=== PATIENT | female | born 1945 | race Caucasian/White ===

== ENCOUNTER → 2017-07-19 | Outpatient (CLI) | payer MEDICARE, BC ==
--- NOTE | 2017-07-20 10:11 | MM ---
Reason for exam: screening (asymptomatic). Last mammogram was performed 1 year and 3 months ago. History: Patient is postmenopausal and has history of other cancer at age 33. Family history of breast cancer in paternal cousin at age 40, breast cancer in maternal grandmother, breast cancer in 2 paternal aunts, and breast cancer in maternal cousin. Benign stereotactic core biopsy of the left breast, December 27, 2001. Core biopsy of the left breast. Excisional biopsy of the left breast. Physical Findings: A clinical breast exam by your physician is recommended on an annual basis and results should be correlated with mammographic findings. MG 3D Screening Mammo W/Cad Bilateral CC and MLO view(s) were taken. Prior study comparison: April 08, 2016, bilateral MG 3d screening mammo w/cad. February 20, 2015, bilateral MG screening mammo w CAD. November 21, 2013, bilateral digital screening mammo w/CAD. There are scattered fibroglandular densities. Previous mammotome biopsy within the left breast. No significant changes when compared with prior studies. ASSESSMENT: Negative, BI-RAD 1 RECOMMENDATION: Routine screening mammogram of both breasts in 1 year.
== END | disposition home or self-care (01) ==
LOC: RADMAMWWP 15:27
PROVIDERS: ATTEND Obstetrics & Gynecology
DX: Z12.31 Encounter for screening mammogram for malignant neoplasm of breast (principal)
CPT/HCPCS: 77063; G0202

== ENCOUNTER → 2019-09-26 | Outpatient (CLI) | payer MEDICARE ==
--- NOTE | 2019-09-30 09:31 | MM ---
Reason for exam: screening (asymptomatic). Last mammogram was performed 1 year ago. History: Patient is postmenopausal and has history of other cancer at age 33. Family history of breast cancer in paternal cousin at age 40, breast cancer in maternal grandmother, breast cancer in 2 paternal aunts, and breast cancer in maternal cousin. Benign stereotactic core biopsy of the left breast, December 27, 2001. Core biopsy of the left breast. Excisional biopsy of the left breast. Physical Findings: A clinical breast exam by your physician is recommended on an annual basis and results should be correlated with mammographic findings. MG 3D Screening Mammo W/Cad Bilateral CC and MLO view(s) were taken. Prior study comparison: September 13, 2018, bilateral MG 3d screening mammo w/cad. July 19, 2017, bilateral MG 3d screening mammo w/cad. The breast tissue is heterogeneously dense. This may lower the sensitivity of mammography. Benign appearing bilateral calcifications. No suspicious abnormality. Left biopsy marker noted. No significant changes when compared with prior studies. ASSESSMENT: Benign, BI-RAD 2 RECOMMENDATION: Routine screening mammogram of both breasts in 1 year.
== END | disposition home or self-care (01) ==
LOC: RADMAMWWP 07:26
PROVIDERS: ATTEND Internal Medicine
DX: Z12.31 Encounter for screening mammogram for malignant neoplasm of breast (principal); Z80.3 Family history of malignant neoplasm of breast
CPT/HCPCS: 77063; 77067

== ENCOUNTER → 2020-05-04 | Outpatient (CLI) | payer MEDICARE ==
--- NOTE | 2020-05-04 17:04 | MR ---
EXAMINATION TYPE: MR iac wo/w con DATE OF EXAM: 05/04/2020 COMPARISON: None HISTORY: Vertigo, Some left sided hearing loss, hears a steady low noise in left ear TECHNIQUE: Multiplanar, multisequence images of the brain and internal auditory canals is performed without and with IV contrast, utilizing 5.5 mL intravenous Gadavist . FINDINGS: Diffusion weighted images demonstrate no evidence of a recent infarct or other diffusion ab normality. There is no extra-axial fluid collection or significant white matter signal abnormality. The ventricular system and cisternal spaces are normal in size and appearance. Very few foci of T2 FLAIR hyperintense periventricular signal, likely sequela of chronic microvascular ischemic changes. There is volume loss commensurate with patient age. Midline structures demonstrate normal morphology. The craniocervical junction appears within normal limits. The cerebellopontine angles are normal. No mass lesion is identified. The internal auditory canals, 7th and 8th cranial nerves, and the internal ear structures are unremarkable. Post contrast i mages demonstrate no abnormal enhancement. The visualized sinuses are clear and the globes are grossl y symmetric. IMPRESSION: No evidence of mass lesion or focal abnormality to explain patient's vertigo or left-side d hearing loss.
== END | disposition home or self-care (01) ==
LOC: RADMRIMAIN 08:53
PROVIDERS: ATTEND Otolaryngology
DX: H93.12 Tinnitus, left ear (principal); H91.93 Unspecified hearing loss, bilateral; Z88.5 Allergy status to narcotic agent
CPT/HCPCS: 70553; A9585

== ENCOUNTER → 2020-12-03 | Outpatient (CLI) | payer MEDICARE ==
--- NOTE | 2020-12-03 17:43 | BD ---
EXAMINATION TYPE: Axial Bone Density DATE OF EXAM: 12/03/2020 COMPARISON: 09.13.2018 CLINICAL HISTORY: 75 YR OLD FEMALE......ICD-10 CODE: M81.0 KNOWN OSTEOPOROSIS Height: 63.2 Weight: 113 FRAX RISK QUESTIONS: NOTHING TO NOTE HERE RISK FACTORS HISTORY OF: Family History of Osteoporosis: UNKNOWN Postmenopausal woman: PROBABLY IN EARLY 50s, HYST AT AGE 31 Lost more than 2 inches in height since high school: YES Hyperparathyroidism: NO Adrenal Insufficiency: NO MEDICATIONS: Osteoporosis Medications: YES, BONIVA ON FOR 3 OFF FOR 10 YRS NOW Additional Medications: VIT D , MULTIVITAMIN Additional History: OSTEOPOROSIS EXAM MEASUREMENTS: Bone mineral densitometry was performed using the zlien System. Bone mineral density as measured about the Lumbar spine is: ----- L1-L4(G/cm2): 0.968 T Score Values are as follows: ----- L1: -2.2 ----- L2: -1.8 ----- L3: -1.1 ----- L4: -2.1 ----- L1-L4: -1.8 Bone mineral density has: Decreased -2.9% since study of: 09.13.2018 Bone mineral density about the R hip (g/cm2): 0.770 Bone mineral density about the L hip (g/cm2): 0.826 T Score values are as follows: -----R Neck: -2.2 -----L Neck: -1.4 -----R Total: -1.9 -----L Total: -1.4 Bone mineral density has: Decreased -4.2% since study of: 09.13.2018 FRAX%s: THERE IS A 12.2% CHANCE FOR A MAJOR OSTEOPOROTIC FX AND A 3.4% FOR HIP......PROBABILITY FO R FX IN 10 YRS TIME IMPRESSION: Osteopenia (T Score between -2.5 and -1). There is slightly increased risk of fracture and the patient may be considered for treatment. Re-Screen 2-5 years. NOTE: T-SCORE=SD OF THE YOUNG ADULT MEAN.
--- NOTE | 2020-12-04 14:06 | MM ---
Reason for exam: screening (asymptomatic). Last mammogram was performed 1 year and 2 months ago. History: Patient is postmenopausal and has history of other cancer at age 33. Family history of breast cancer in paternal cousin at age 40, breast cancer in maternal grandmother, breast cancer in 2 paternal aunts, and breast cancer in maternal cousin. Benign stereotactic core biopsy of the left breast, December 27, 2001. Core biopsy of the left breast. Excisional biopsy of the left breast. Physical Findings: A clinical breast exam by your physician is recommended on an annual basis and results should be correlated with mammographic findings. MG 3D Screening Mammo W/Cad Bilateral CC and MLO view(s) were taken. Prior study comparison: September 26, 2019, bilateral MG 3d screening mammo w/cad. September 13, 2018, bilateral MG 3d screening mammo w/cad. The breast tissue is heterogeneously dense. This may lower the sensitivity of mammography. Stable benign calcifications. There is no discrete abnormality. No significant changes when compared with prior studies. ASSESSMENT: Benign, BI-RAD 2 RECOMMENDATION: Routine screening mammogram of both breasts in 1 year.
== END | disposition home or self-care (01) ==
LOC: RADBDWWP 08:27
PROVIDERS: ATTEND Internal Medicine
DX: Z12.31 Encounter for screening mammogram for malignant neoplasm of breast (principal); M85.80 Other specified disorders of bone density and structure, unspecified site
CPT/HCPCS: 77063; 77067; 77080

== ENCOUNTER → 2022-01-21 | Outpatient (CLI) | payer MEDICARE ==
--- NOTE | 2022-01-24 11:42 | MM ---
Reason for exam: screening (asymptomatic). Last mammogram was performed 1 year and 2 months ago. History: Patient is postmenopausal and has history of other cancer at age 33. Family history of breast cancer in paternal cousin at age 40, breast cancer in maternal grandmother, breast cancer in 2 paternal aunts, and breast cancer in maternal cousin. Benign stereotactic core biopsy of the left breast, December 27, 2001. Core biopsy of the left breast. Excisional biopsy of the left breast. Physical Findings: A clinical breast exam by your physician is recommended on an annual basis and results should be correlated with mammographic findings. MG 3D Screening Mammo W/Cad Bilateral CC and MLO view(s) were taken. Prior study comparison: December 03, 2020, bilateral MG 3d screening mammo w/cad. September 26, 2019, bilateral MG 3d screening mammo w/cad. The breast tissue is heterogeneously dense. This may lower the sensitivity of mammography. Stable benign calcifications. There is no discrete abnormality. No significant changes when compared with prior studies. ASSESSMENT: Benign, BI-RAD 2 RECOMMENDATION: Routine screening mammogram of both breasts in 1 year.
== END | disposition home or self-care (01) ==
LOC: RADMAMWWP 15:41
PROVIDERS: ATTEND Internal Medicine
DX: Z12.31 Encounter for screening mammogram for malignant neoplasm of breast (principal); Z78.0 Asymptomatic menopausal state; Z80.3 Family history of malignant neoplasm of breast
CPT/HCPCS: 77063; 77067

== ENCOUNTER → 2022-05-03 | Outpatient (CLI) | payer MEDICARE ==
[2022-05-03 10:00] VITALS: BP 114/73; PULSE 74; RESP 17; TEMP 97.9
--- NOTE | 2022-05-03 11:02 | P.HPOB ---
History of Present Illness H&P Date: 05/03/22 Chief Complaint: The patient is here for her routine gynecologic exam. This is a 76-year-old with an LMP of 1978. The patient is here to establish with this office. It has been about 3-1/2 years since her last pelvic exam. She is status post vaginal hysterectomy for cervical dysplasia in 1978. She is without gynecologic complaints. Review of Systems The patient's weight has been stable over the last year. She denies respiratory, cardiac, or G.I. problems. Past Medical History Past Medical History: No Reported History, Hyperlipidemia Additional Past Medical History / Comment(s): "Leaky"cardiac valve (Asymptomatic). Osteopenia(s/p 3yr use of Boniva). 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 History of cervical dysplasia in 1978. History of Any Multi-Drug Resistant Organisms: None Reported Past Surgical History: Appendectomy, Cholecystectomy, Hysterectomy, Tonsillectomy Additional Past Surgical History / Comment(s): Vaginal hysterectomy 1978 for cervical dysplasia. Past Anesthesia/Blood Transfusion Reactions: No Reported Reaction Past Psychological History: No Psychological Hx Reported (She denies current depression.) Smoking Status: Former smoker Past Alcohol Use History: Occasional (0-3 per week) Additional Past Alcohol Use History / Comment(s): Quit smoking in 1978 Past Drug Use History: None Reported Additional History: She has been since 1977 and is infrequently sexually active. She is retired and previously worked at [employer]. - Past Family History Father Family Medical History: Coronary Artery Disease (CAD), Hypertension Additional Family Medical History / Comment(s): Paternal grandmother had diabetes. Mother Additional Family Medical History / Comment(s): Cardiac valve disorder. Brother(s) Family Medical History: Hyperlipidemia, Hypertension Additional Family Medical History / Comment(s): Overweight. Medications and Allergies Home Medications Medication Instructions Recorded Confirmed Type Ascorbic Acid [Vitamin C] 500 mg PO DAILY 05/03/22 05/03/22 History Cholecalciferol [Vitamin D3 (25 25 mcg PO DAILY 05/03/22 05/03/22 History Mcg = 1000 Iu)] Multivit-Min/Iron/Folic/Lutein 1 tab PO DAILY 05/03/22 05/03/22 History [Centrum Silver Women Tablet] Allergies Allergy/AdvReac Type Severity Reaction Status Date / Time No Known Allergies Allergy Unverified 05/03/22 10:00 Exam Vital Signs Temp Pulse Resp BP Pulse Ox 05/03/22 09:55 97.9 F 74 17 114/73 96 Intake and Output 05/02/22 05/03/22 05/03/22 22:59 06:59 14:59 Other: Weight 53.977 kg Height 5 feet 4 inches, weight 119 pounds, BMI 20.4. This is a well-developed well-nourished white female who is alert and oriented times 3 in no acute distress. HEENT: Within normal limits. NECK: Supple without mass or thyromegaly. CHEST AND LUNGS: Clear to auscultation. HEART: Regular rate and rhythm. BREASTS: Are without mass or discharge. AXILLARY EXAM: Negative for adenopathy. BACK: Negative for CVA tenderness. ABDOMEN: Soft, nontender, without palpable masses. PELVIC EXAM: External genitalia appears normal with mild to moderate atrophy. Vagina appears normal with mild to moderate atrophy. There is no evidence of prolapse. Bimanual examination is negative for mass or tenderness. RECTAL EXAM: Rectovaginal exam is negative for mass or tenderness and is negative for occult blood. EXTREMITIES: Nontender. IMPRESSION: 1. 76-year-old menopausal female status post vaginal hysterectomy for cervical dysplasia in 1978, with normal gynecologic exam. 2. History of osteopenia. PLAN: 1. Pap smears have been discontinued. 2. Self breast awareness was discussed with the patient. We have also discussed symptoms associated with inflammatory breast cancer. 3. She had a benign screening mammogram on 01/21/2022. She will repeat this in 1 year. 4. Osteoporosis prevention was discussed. I have stressed the importance of adequate calcium, vitamin D and regular exercise. Recommended amounts of calcium and vitamin D were also discussed. Bone density on 12/03/2020 showed osteopenia. She is status post 3 years use of Boniva and years ago. I have recommended that she repeat the bone density test in 1 year. She will do this a t her next annual exam here. 5. Colorectal cancer screening was discussed. She believes she has been doing Cologuard testing through her PCP. She will discuss colorectal cancer screening with her PCP. 6. She has completed her Covid vaccination series and did receive a booster.
== END ==
LOC: WWCWWP 09:45
PROVIDERS: ATTEND Obstetrics & Gynecology
DX: Z01.419 Encounter for gynecological examination (general) (routine) without abnormal findings (principal); E78.5 Hyperlipidemia, unspecified; F32.A Depression, unspecified; Z87.891 Personal history of nicotine dependence; Z78.0 Asymptomatic menopausal state; Z90.710 Acquired absence of both cervix and uterus; Z87.39 Personal history of other diseases of the musculoskeletal system and connective tissue; Z87.410 Personal history of cervical dysplasia

== ENCOUNTER → 2023-01-25 | Outpatient (CLI) | payer MEDICARE ==
--- NOTE | 2023-01-25 10:16 | BD ---
EXAMINATION TYPE: Axial Bone Density DATE OF EXAM: 01/25/2023 CLINICAL HISTORY: 77 years old Female. ICD-10 CODE: M81.0 OSTEOPOROSIS Height: 63 Weight: 119 FRAX RISK QUESTIONS: Family History (Parent hip fracture): no History of Fracture in Adulthood: no Secondary Osteoporosis: no Rheumatoid Arthritis: no RISK FACTORS HISTORY OF: Family History of Osteoporosis: no Active: yes Diet low in dairy products/other sources of calcium: no Postmenopausal woman: yes Lost more than 2 inches in height since high school: no Frequent falls: no Poor Health: no MEDICATIONS: Additional Medications: no Additional History: yes cervical cancer EXAM MEASUREMENTS: Bone mineral densitometry was performed using the Copytele System. Bone mineral density as measured about the Lumbar spine is: ----- L1-L4(G/cm2): 0.970 T Score Values are as follows: ----- L1: -2.2 ----- L2: -1.8 ----- L3: -1.2 ----- L4: -2.0 ----- L1-L4: -1.8 Z Score Values are as follows: ----- L1: -0.1 ----- L2: 0.3 ----- L3: 0.9 ----- L4: 0.1 ----- L1-L4: 0.4 Bone mineral density has: Increased 0.2% since study of: 12/03/2020 Bone mineral density about the R hip (g/cm2): 0.752 Bone mineral density about the L hip (g/cm2): 0.799 T Score values are as follows: -----R Neck: -2.7 -----L Neck: -2.0 -----R Total: -2.0 -----L Total: -1.7 Z Score values are as follows: -----R Neck: -0.5 -----L Neck: 0.2 -----R Total: 0.0 -----L Total: 0.4 Bone mineral density has: Decreased -2.9% since study of: 12/03/2020 FRAX%s: The graph provided illustrates a 17.0% chance for a major osteoporotic fx and a 6.2% chance f or the hips probability for fx in 10 years time. IMPRESSION: Osteoporosis (T Score less than -2.5). There is increased fracture risk and therapy is usually indicated based on age. Re-Screen 1-2 years. NOTE: T-SCORE=SD OF THE YOUNG ADULT MEAN.
--- NOTE | 2023-01-26 16:50 | MM ---
Reason for Exam: Screening (asymptomatic). Last screening mammogram was performed 12 month(s) ago. Patient History: Menarche at age 17. First Full-Term at age 23. Hysterectomy at age 32. Postmenopausal. Core Biopsy on the Left side. Excisional Biopsy on the Left side. 12/27/2001, Benign Stereotactic Core Biopsy on the left side. Maternal grandmother had breast cancer. Paternal cousin had breast cancer, age 40. Maternal cousin had breast cancer. Paternal aunt had breast cancer. Paternal aunt had breast cancer. Risk Values: Rita 5 year model risk: 2.2%. NCI Lifetime model risk: 4.7%. Prior Study Comparison: 09/26/2019 Bilateral Screening Mammogram, [facility]. 12/03/2020 Bilateral Screening Mammogram, [facility]. 01/21/2022 Bilateral Screening Mammogram, [facility]. Tissue Density: The breast tissue is heterogeneously dense. This may lower the sensitivity of mammography. Findings: Analyzed By CAD. There is symmetrical and stable. Benign spherical calcifications are bilaterally. Benign vascular calcifications are bilateral. There is a core marker in the left breast. No suspicious groups of microcalcifications, spiculated or lobular masses, architectural distortion or other secondary signs of malignancy are mammographically apparent. Overall Assessment: Benign, BI-RAD 2 Management: Screening Mammogram of both breasts in 1 year. A negative mammogram report should not preclude additional follow up of suspicious palpable abnormalities. Patient should continue monthly self breast exam. A clinical breast exam by your physician is recommended on an annual basis and results should be correlated with mammographic findings. Electronically signed and approved by: Fabien Pratt D.O. Radiologis
== END | disposition home or self-care (01) ==
LOC: RADMAMWWP 07:35
PROVIDERS: ATTEND Internal Medicine
DX: Z12.31 Encounter for screening mammogram for malignant neoplasm of breast (principal); M81.0 Age-related osteoporosis without current pathological fracture; Z78.0 Asymptomatic menopausal state; Z80.3 Family history of malignant neoplasm of breast; Z98.890 Other specified postprocedural states
CPT/HCPCS: 77063; 77067; 77080

== ENCOUNTER → 2023-05-16 | Outpatient (CLI) | payer MEDICARE ==
[2023-05-16 11:30] VITALS: BP 115/72; PULSE 90; RESP 16; TEMP 98.4
--- NOTE | 2023-05-16 12:37 | P.HPOB ---
History of Present Illness H&P Date: 05/16/23 Chief Complaint: The patient is here for her routine gynecologic exam. This is a 77-year-old with an LMP of 1978. She is status post vaginal hysterectomy for cervical dysplasia in 1978. She thinks she has a urinary tract infection. This would be her first UTI. She states she returned from a trip to [place] 4 days ago. Just prior to traveling home she developed urinary symptoms including urinary urgency, urinary frequency and dysuria with burning. She has been voiding small amounts recently. She has recently also gotten over "food poisoning" with diarrhea. She is infrequently sexually active. She is otherwise without complaints. She did have a mammogram and bone density test done through her PCP on 01/25/2023. The mammogram was benign. The bone density test did show osteoporosis. Her PCP offered her prescription treatment for the osteoporosis which she has declined. Review of Systems The patient's weight has been stable over the last year. She denies respiratory, cardiac, or G.I. problems. : See HPI. Past Medical History Past Medical History: No Reported History, Hyperlipidemia Additional Past Medical History / Comment(s): "Leaky"cardiac valve (Asymptomatic). Osteoporosis (s/p 3yr use of Boniva). 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 History of cervical dysplasia in 1978. History of Any Multi-Drug Resistant Organisms: None Reported Past Surgical History: Appendectomy, Cholecystectomy, Hysterectomy, Tonsillectomy Additional Past Surgical History / Comment(s): Vaginal hysterectomy 1978 for cervical dysplasia. Past Anesthesia/Blood Transfusion Reactions: No Reported Reaction Past Psychological History: No Psychological Hx Reported Smoking Status: Former smoker Past Alcohol Use History: Occasional (0-3 per week.) Additional Past Alcohol Use History / Comment(s): Quit smoking in 1978 Past Drug Use History: None Reported Additional History: She has been since 1977 and is infrequently sexually active. She is retired and previously worked for [employer]. - Past Family History Father Family Medical History: Coronary Artery Disease (CAD), Hypertension Additional Family Medical History / Comment(s): Paternal grandmother had diabetes. Mother Additional Family Medical History / Comment(s): Cardiac valve disorder. Brother(s) Family Medical History: Hyperlipidemia, Hypertension Additional Family Medical History / Comment(s): Overweight. Medications and Allergies Home Medications Medication Instructions Recorded Confirmed Type Ascorbic Acid [Vitamin C] 500 mg PO DAILY 05/03/22 05/16/23 History Cholecalciferol [Vitamin D3 (25 25 mcg PO DAILY 05/03/22 05/16/23 History Mcg = 1000 Iu)] Multivit-Min/Iron/Folic/Lutein 1 tab PO DAILY 05/03/22 05/16/23 History [Centrum Silver Women Tablet] Allergies Allergy/AdvReac Type Severity Reaction Status Date / Time No Known Allergies Allergy Unverified 05/16/23 11:24 Exam Vital Signs Temp Pulse Resp BP Pulse Ox 05/16/23 11:27 98.4 F 90 16 115/72 97 Intake and Output 05/15/23 05/16/23 05/16/23 22:59 06:59 14:59 Other: Weight 54.431 kg Height 5 feet 4 inches, weight 120 pounds, BMI 20.6. This is a well-developed well-nourished white female who is alert and oriented times 3 in no acute distress. HEENT: Within normal limits. NECK: Supple without mass or thyromegaly. CHEST AND LUNGS: Clear to auscultation. HEART: Regular rate and rhythm. BREASTS: Are without mass or discharge. AXILLARY EXAM: Negative for adenopathy. BACK: Negative for CVA tenderness. ABDOMEN: Soft, nontender, without palpable masses. PELVIC EXAM: External genitalia appears normal with mild to moderate atrophy. Vagina appears normal with mild to moderate atrophy. There is no unusual discharge. There is no evidence of prolapse. Bimanual examination is negative for mass. There is mild tenderness in the area of her bladder. She states it feels like pressure when I push in this area. RECTAL EXAM: Rectovaginal exam is negative for mass or tenderness and is nega tive for occult blood. EXTREMITIES: Nontender. IMPRESSION: 1. 77-year-old menopausal female status post vaginal hysterectomy for cervical dysplasia with normal gynecologic exam. 2. Suspected cystitis UTI. 3. Osteoporosis status post 3 years use of Boniva in the past. PLAN: 1. Pap smears have been discontinued. 2. Self breast awareness was discussed with the patient. We have also discussed symptoms associated with inflammatory breast cancer. 3. Screening mammogram was done on 01/25/2023 and was benign. She will repeat this after 1 year. 4. She will be treated empirically for her suspected UTI. Macrobid twice a day 7 days. The electronic prescription will be sent to [facility] in [place]. 5. Osteoporosis management was discussed. I have stressed the importance of adequate calcium, vitamin D and regular exercise. Recommended amounts of calcium and vitamin D were also discussed. We have discussed restarting a bisphosphonate such as Fosamax or Boniva since she used it for 3 years. We discussed the option of starting it and using it for 2 additional years to complete a total of 5 years. She is declining prescription medication for the osteoporosis at this time. She will call if she changes her mind about taking prescribed medication which may decrease the risk for bone fracture. 6. We have discussed the option of using estrogen vaginal cream for vaginal d ryness with intercourse as well as possibly decreasing the chances of recurrent UTIs. She is interested in having a trial of Premarin vaginal cream. She will insert 1 g into the vagina and to times weekly. One sample tube was given to the patient with instructions electronic prescription will be sent to [facility] pharmacy in [place]. 7. Urine has been obtained for urinalysis with culture and sensitivities. 8. She was advised to return in one year for her annual well woman exam and as needed.
[2023-05-17 05:15] LABS: Appearance,Urine Turbid (Clear); Bacteria,Urine 3+ (None Seen); Bilirubin,Urine Negative (Negative); Blood,Urine Large (Negative); Calcium Oxalate Crystals,Urine Present (None Seen); Color,Urine Dark Yellow (Yellow); Ketones,Urine Trace (Negative); Nitrite,Urine Positive (Negative); PH, Urine 5.5; Specific Gravity,Urine 1.021 (1.001-1.030)
--- NOTE | 2023-05-17 14:06 | P.PN ---
Progress Note - Text Progress Note Date: 05/17/23 OUTPATIENT FOLLOW-UP NOTE TEST(S)/RESULTS: Urinalysis done on 05/16/2023 was positive for white blood cells nitrite and blood; this is consistent with UTI. METHOD OF NOTIFICATION: A message with this result was left on the patient's voicemail on 05/17/2023. PATIENT COMMENTS: DIAGNOSIS: Cystitis UTI. DISCUSSION: She was empirically treated with Macrobid when she was seen on 05/16/2023. She was instructed to call if she has any questions or problems. We will await the urine culture with sensitivities. PLAN: As above.
== END ==
LOC: WWCWWP 11:15
PROVIDERS: ATTEND Obstetrics & Gynecology
DX: Z01.411 Encounter for gynecological examination (general) (routine) with abnormal findings (principal); E78.5 Hyperlipidemia, unspecified; M81.0 Age-related osteoporosis without current pathological fracture; N39.0 Urinary tract infection, site not specified; Z87.891 Personal history of nicotine dependence; R39.15 Urgency of urination; R30.0 Dysuria
CPT/HCPCS: 81001; 87086

== ENCOUNTER → 2023-11-20 | Outpatient (CLI) | payer MEDICARE ==
--- NOTE | 2023-11-20 14:52 | US ---
EXAMINATION TYPE: US thyroid st tissue head/neck DATE OF EXAM: 11/20/2023 COMPARISON: NONE CLINICAL INDICATION: Female, 78 years old with history of E04.1 THYROID NODULE; Thyroid nodule. GLAND SIZE: Right Lobe: 4.4 x 1.4 x 1.1 cm Overall Parenchyma: homogeneous Left Lobe: 5.0 x 1.3 x 1.5 cm Overall Parenchyma: homogeneous Isthmus Thickness: 0.31 cm NODULES RIGHT: # of nodules measured on right: 1. Multiple less than 5 mm nodules seen, not fully measured . 1. 0.5 X 0.5 x 0.3 cm, mid mid, Prior size: No prior TIRADS Score: 0. TIRADS Category 1: Composition: Cystic or almost completely cystic (0 points). Recommendation: No FNA LEFT: # of nodules measured on left: 2. *Several smaller anechoic nodules seen additionally in th e inferior left lobe, not fully measured. 1. 0.6 X 0.6 x 0.5 cm, mid mid, Prior size: No prior TIRADS Score: 0 TIRADS Category 1: Composition: Cystic or almost completely cystic (0 points). Recommendation: No FNA 2. 0.7 X 0.6 x 0.5 cm, lower lateral, Prior size: No prior TIRADS Score: 0 TIRADS Category 1: Composition: Cystic or almost completely cystic (0 points). Recommendation: No FNA ISTHMUS: # of nodules measured in the isthmus: 1 1. 0.7 X 0.6 x 0.4 cm Prior size: No prior TIRADS Score: 4 TIRADS Category 4: Composition: Solid or almost completely solid (2 points). Echogenicity: Hypoechoic (2 points). Shape: Wider than tall (0 points). Margin: Smooth (0 points). Echogenic foci: None or large comet-tail artifacts (0 points) Recommendation: If >1.5cm: FNA; If >1cm: Follow up at 1,2, 3,5 years Bilateral neck scanned, no evidence of lymphadenopathy. IMPRESSION: Bilateral thyroid nodules that meet criteria for follow-up.
== END | disposition home or self-care (01) ==
LOC: RADUSWWP 13:15
PROVIDERS: ATTEND Internal Medicine
DX: E04.2 Nontoxic multinodular goiter (principal)
CPT/HCPCS: 76536

== ENCOUNTER → 2024-02-08 | Outpatient (CLI) | payer MEDICARE ==
--- NOTE | 2024-02-19 11:53 | NM ---
EXAMINATION TYPE: NM DatScan Brain SPECT DATE OF EXAM: 02/16/2024 COMPARISON: NONE CLINICAL INDICATION: Female, 78 years old with history of R25.1 tremor; TECHNIQUE: 10 drops of Lugol's solution was administered 1 hour prior to injection as a thyroid bloc emily agent. After the administration of 4.7 mCi I-123 Ioflupane DaTscan. Images obtained [address] injection. SPECT images of the brain were acquired with axial and coronal reconstructions. FINDINGS: Diffusely increased background activity. In addition, there is significantly blunted striatal uptake. IMPRESSION: This abnormal appearance is supportive of a clinical diagnosis of either idiopathic Parkinson's disea se or Parkinsonian syndrome.
== END | disposition home or self-care (01) ==
LOC: RADNMMAIN 08:36
PROVIDERS: ATTEND Internal Medicine
DX: R25.1 Tremor, unspecified (principal)
CPT/HCPCS: 78803; A9584

== ENCOUNTER → 2024-02-13 | Outpatient (CLI) | payer MEDICARE ==
--- NOTE | 2024-02-14 08:02 | MM ---
Reason for Exam: Screening (asymptomatic). Last screening mammogram was performed 12 month(s) ago. Patient History: Menarche at age 17. First Full-Term at age 23. Hysterectomy at age 32. Postmenopausal. Other cancer. Core Biopsy on the Left side. Excisional Biopsy on the Left side. 12/27/2001, Benign Stereotactic Core Biopsy on the left side. Maternal grandmother had breast cancer. Paternal cousin had breast cancer, age 40. Maternal cousin had breast cancer. Paternal aunt had breast cancer. Paternal aunt had breast cancer. Risk Values: Rita 5 year model risk: 2.2%. NCI Lifetime model risk: 4.4%. Prior Study Comparison: 12/03/2020 Bilateral Screening Mammogram, [facility]. 01/21/2022 Bilateral Screening Mammogram, [facility]. 01/25/2023 Bilateral MG 3D screening mammo w/cad, [facility]. Tissue Density: The breasts are heterogeneously dense, which may obscure small masses. Findings: Analyzed By CAD. Right breast: There is no suspicious group of microcalcifications or new suspicious mass. Benign-appearing calcifications right breast. Left breast: There is no suspicious group of microcalcifications or new suspicious mass. Benign-appearing calcifications left breast. Overall Assessment: Benign, BI-RAD 2 Management: Screening Mammogram of both breasts in [address] [facility] will attempt to contact patient to return for supplemental views and ultrasound if indicated. Patient should continue monthly self-breast exams. A clinical breast exam by your physician is recommended on an annual basis. This exam should not preclude additional follow-up of suspicious palpable abnormalities. Note on Rita scores and lifetime risk: 1. A Rita score greater than 3% is considered moderate risk. If this is the case, consider specialist referral to assess eligibility for a risk reducing agent. 2. If overall lifetime risk for the development of breast cancer is 20% or higher, the patient may qualify for future screening with alternating mammogram and breast MRI. Electronically signed and approved by: Lon Downs DO
== END | disposition home or self-care (01) ==
LOC: RADMAMWWP 07:34
PROVIDERS: ATTEND Internal Medicine
DX: Z12.31 Encounter for screening mammogram for malignant neoplasm of breast (principal); Z78.0 Asymptomatic menopausal state; Z80.3 Family history of malignant neoplasm of breast
CPT/HCPCS: 77063; 77067